=== PATIENT | male | born 1950 | race Caucasian/White ===

== ENCOUNTER 2023-06-12 11:37 | Outpatient (CLI) | payer BC ==
--- NOTE | 2023-06-12 13:01 | Ultrasound Report ---
PROCEDURE: Aorta Screening INDICATIONS: SCREENING FOR AAA TECHNIQUE: Real time scanning was performed of the aorta and iliac arteries, with image documentatio n. COMPARISON: None. FINDINGS: Evaluation is limited secondary to patient positioning as patient is unable to lay flat. Aorta: Proximal aortic is not well seen Mid-aorta measures 1.9 x 1.9 cm. Distal aortic diameter is 1.4 x 1.7 cm. Iliac arteries: Right common iliac artery measures 0.9 x 0.8 cm. Left common iliac artery measures 0.9 x 0.9 cm. IMPRESSION: Evaluation is limited secondary to patient positioning. 1.Within these limitations, no abdominal aortic aneurysm or ectasia. 2.Bilateral common iliac arteries are normal in caliber, where visualized. Reviewed by: Adryan Cheek MD on 06/12/2023 1:00 PM PST Approved by: Adryan Cheek MD on 06/12/2023 1:00 PM PST Station ID: [id number]
== END 2023-06-12 11:38 | disposition home or self-care (01) ==
LOC: DI 11:37
PROVIDERS: ATTEND Internal Medicine
DX: Z13.6 Encounter for screening for cardiovascular disorders (principal)

== ENCOUNTER 2023-07-09 13:21 | Outpatient (CLI) | payer BC, OTHER ==
[2023-07-09] MEDS: ALBUTEROL 1 PUFF INH STA (15:11)
== END 2023-07-09 13:22 | disposition home or self-care (01) ==
LOC: RT 13:21 → EDBD 13:21 → RT 13:22
PROVIDERS: ATTEND Internal Medicine
DX: J44.9 Chronic obstructive pulmonary disease, unspecified (principal)
CPT/HCPCS: 94060; 94727; 94729

== ENCOUNTER 2023-10-16 05:32 | Emergency (ER) | payer MEDICARE, BC ==
--- NOTE | 2023-10-16 06:03 | ED Physician Documentation ---
PD HPI DYSPNEA - Stated complaint Stated Complaint: SOA - Chief complaint Chief Complaint: Resp - History obtained from History obtained from: Patient, EMS - History of Present Illness Timing - onset: How many days ago (2) Timing - onset during: Rest Timing - duration: Days (2) Timing - details: Gradual onset, Still present Inciting event(s): URI Improved by: Inhaler/neb, Steroids Worsened by: Exertion Associated symptoms: Cough, Wheezing Similar symptoms before: Diagnosis (COPD) Recently seen: Not recently seen - Additional information Additional information: Malick Garrison is a 71-year-old male with a history of COPD who resides at [facility]. He has been having increasing shortness of breath over the past 3 days. He has developed a slight tickle in the back of his throat and minimal cough without production of sputum. He has not had fever. He was unable to get adequate relief with multiple uses of his inhaler and called 911. He has received 2 DuoNeb treatments and route to the hospital as well as 125 mg of Solu-Medrol and on arrival to the emergency department is feeling improved. Review of Systems Constitutional: denies: Fever Eyes: denies: Decreased vision Ears: denies: Ear pain Nose: denies: Congestion Throat: denies: Sore throat Cardiac: denies: Chest pain / pressure, Palpitations Respiratory: reports: Dyspnea, Cough, Wheezing GI: denies: Abdominal Pain, Nausea, Vomiting, Constipation, Diarrhea : denies: Dysuria, Frequency PD PAST MEDICAL HISTORY - Past Medical History Past Medical History: Yes Cardiovascular: Coronary artery disease Respiratory: COPD Neuro: None Endocrine/Autoimmune: None GI: None : None HEENT: None Psych: None Musculoskeletal: None Derm: None - Past Surgical History Past Surgical History: Yes Ortho: Other Cardiovascular: Coronary stent - Present Medications Home Medications: Ambulatory Orders Medication Instructions Recorded Confirmed Azithromycin [Zithromax] 250 mg PO DAILY #6 tablet 10/16/23 predniSONE [Deltasone] 40 mg PO DAILY 5 Days #10 tablet 10/16/23 - Allergies Allergies/Adverse Reactions: Allergies Allergy/AdvReac Type Severity Reaction Status Date / Time No Known Drug Allergies Allergy Verified 10/16/23 05:48 - Social History Does the pt smoke?: No Smoking Status: Former smoker Does the pt drink ETOH?: No Does the pt have substance abuse?: No - Immunizations Immunizations are current?: Yes - POLST Patient has POLST: No PD ED PE NORMAL - Vitals Vital signs reviewed: Yes (Tachycardic) - General General: Alert and oriented X 3, No acute distress, Well developed/nourished - HEENT HEENT: Atraumatic, PERRL, EOMI - Neck Neck: Supple, no meningeal sign, No bony TTP - Cardiac Cardiac: RRR, No murmur - Respiratory Respiratory: No respiratory distress, Other (Inspiratory and expiratory wheezes bilaterally.) - Abdomen Abdomen: Soft, Non tender - Back Back: No CVA TTP, No spinal TTP - Derm Derm: Normal color, Warm and dry, No rash - Extremities Extremities: No deformity, No edema - Neuro Neuro: Alert and oriented X 3, 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, No motor deficit, No sensory deficit, Normal speech Eye Opening: Spontaneous Motor: Obeys Commands Verbal: Oriented GCS Score: 15 - Psych Psych: Normal mood, Normal affect Results - Vitals Vitals: Vital Signs - 24 hr 10/16/23 10/16/23 05:39 06:15 Temperature 36.4 C L Heart Rate 118 H 68 Respiratory 22 18 Rate Blood Pressure 127/76 146/69 H O2 Saturation 96 95 Oxygen O2 Source Room air - Rads (name of study) CXR Relevant Findings:: Prelim report reviewed (Impression: No acute cardiopulmonary findings given technical limitations.), EMP independent interpretation of test, See rad report PD Medical Decision Making - ED course Complexity details: reviewed results, re-evaluated patient, considered differential, d/w patient ED course: 71-year-old male with a history of COPD presents to the emergency department with increased dyspnea over a 2-day period of time. He feels this is most likely related to pollen exposure. He does have a slight cough. He is treated in the ambulance and route with 125 mg of Solu-Medrol and 2 nebulizer treatments. He feels 100% better when he arrives to the emergency department. He continues to have an O2 saturation of 91% after 1 hour in the emergency department and he is administered a third nebulized treatment. Will place him on a course of prednisone and azithromycin for exacerbation of COPD. Departure - Departure Disposition: 01 Home, Self Care Clinical Impression: COPD exacerbation Condition: Stable Instructions: ED COPD Flare Follow-Up: Madhav Conley MD [Provider Admit Priv/Credential] - Prescriptions: predniSONE [Deltasone] 40 mg PO DAILY 5 Days #10 tablet Azithromycin [Zithromax] 250 mg PO DAILY #6 tablet Comments: Malick, today looks like you are having an exacerbation of your COPD. This usually occurs with either minor infection or environmental exposure. You did respond to the treatments given and we will provide a further course to include a 5-day course of prednisone and 5 days of azithromycin. Forms: PCP List
[2023-10-16 07:35] LABS: B. PARAPERTUSSIS- RESP PCR PAN NOT DETECTED; B. PERTUSSIS- RESP PCR PANEL NOT DETECTED; C. PNEUMONIAE- RESP PCR PANEL NOT DETECTED; CORONAVIRUS 229E-RESP PCR NOT DETECTED; CORONAVIRUS HKU1-RESP PCR NOT DETECTED; CORONAVIRUS NL63-RESP PCR NOT DETECTED; CORONAVIRUS OC43-RESP PCR NOT DETECTED; HUMAN METAPNEUMOVIRUS NOT DETECTED; INFLUENZA A- RESP PCR PANEL NOT DETECTED; INFLUENZA B - RESP PCR PANEL NOT DETECTED; M. PNEUMONIAE- RESP PCR PANEL NOT DETECTED; PARAINFLUENZA VIRUS 1 NOT DETECTED; PARAINFLUENZA VIRUS 2 NOT DETECTED; PARAINFLUENZA VIRUS 3 NOT DETECTED; PARAINFLUENZA VIRUS 4 NOT DETECTED; RHINOVIRUS/ENTEROVIRUS NOT DETECTED; RSV- RESP PCR PANEL NOT DETECTED; SARS-CoV-2 -RESP PCR PANEL NOT DETECTED
--- NOTE | 2023-10-16 07:52 | XRAY Report ---
PROCEDURE: Chest 1V INDICATIONS: SOB TECHNIQUE: One view of the chest was acquired. COMPARISON: None. FINDINGS: Lungs are overpenetrated. Surgical changes and devices: None. Lungs and pleura: No pleural effusions or pneumothorax. Lungs are clear. Mediastinum: Mediastinal contours appear normal. Heart size is normal. Bones and chest wall: No suspicious bony lesions. Overlying soft tissues appear unremarkable. IMPRESSION: No acute cardiopulmonary process identified. This report is concordant with the overnight preliminary interpretation. Reviewed by: John Colindres MD on 10/16/2023 7:51 AM PDT Approved by: John Colindres MD on 10/16/2023 7:51 AM PDT Station ID: [id number]
[2023-10-16 08:02] VITALS: BP 139/78; O2SAT 96
== END 2023-10-16 08:54 | disposition home or self-care (01) ==
LOC: EDBD → EDUNIT# → ED 05:32
DX: J44.1 Chronic obstructive pulmonary disease with (acute) exacerbation (principal); Z87.891 Personal history of nicotine dependence
CPT/HCPCS: 87633; 99283; 99284